=== PATIENT | female | born 1970 | race Two or more races ===

== ENCOUNTER 2017-11-06 15:47 | Inpatient (IN) | payer MEDICAID, OTHER ==
--- NOTE | 2017-11-06 16:27 | EDPHY ---
H & P Stated Complaint: R abd pain since last pm;denies n/v/d or constipation Time Seen by Provider: 11/06/17 16:15 HPI/ROS: CHIEF COMPLAINT: Abdominal pain HISTORY OF PRESENT ILLNESS: The patient presents the ED with complaints of right-sided abdominal pain. The patient's symptoms have been present for the past day. Her pain is moderate in nature. It does not radiate. She denies associated fever, vomiting, diarrhea or dysuria. The patient has a past medical history significant for rectal cancer which is in remission. It was treated surgically in 2013 with postoperative chemo and radiation. The patient currently takes no prescription medications. The patient currently rates her pain as a 6/10. The patient does report a history of diverticulosis noted on her colonoscopies. She has no history of diverticulitis. REVIEW OF SYSTEMS: A comprehensive 10 point review of systems is otherwise negative aside from elements mentioned in the history of present illness. Source: Patient Exam Limitations: No limitations - Personal History LMP (Females 10-55): Post Menopausal Current Tetanus Diphtheria and Acellular Pertussis (TDAP): Yes Tetanus Vaccine Date: < 10 YEARS - Medical/Surgical History Other PMH: Colon CA w/dissection ~ 5 yrs ago - Social History Smoking Status: Former smoker - Physical Exam Exam: General Appearance: Alert, no distress Eyes: Pupils equal and round no pallor or injection ENT, Mouth: Mucous membranes moist Respiratory: There are no retractions, lungs are clear to auscultation Cardiovascular: Regular rate and rhythm Gastrointestinal: Tenderness to palpation right lower quadrant, rebound is present, no peritoneal signs Neurological: A&O, normal motor function, normal sensory exam, normal cranial nerves Skin: Warm and dry, no rashes Musculoskeletal: Neck is supple nontender Extremities: symmetrical, full range of motion Constitutional: Initial Vital Signs Temperature (C) 36.9 C 11/06/17 15:59 Heart Rate 72 11/06/17 15:59 Respiratory Rate 18 11/06/17 15:59 Blood Pressure 109/59 L 11/06/17 15:59 O2 Sat (%) 98 11/06/17 15:59 O2 Delivery Mode Room Air Allergies/Adverse Reactions: No Known Allergies Allergy (Verified 11/06/17 15:59) Home Medications: Medication Instructions Recorded NK [No Known Home Meds] 11/06/17 Medical Decision Making - Diagnostics Imaging Results: Imaging Impressions Abdomen CT 11/06/17 16:33 Impression: 1. Inflammation involving the cephalad aspect of the proximal one-third portion of the transverse colon, probably a result of acute diverticulitis with a tiny pericolonic developing abscess measuring 12 x 12 x 14 mm. Clinical correlation and follow-up to assure resolution are recommended. 2. Postsurgical change to the rectum. 3. Normal appearance of the appendix. Findings and recommendations were discussed with Rudy Kirkpatrick MD at 17:36 , on 11/06/2017. ED Course/Re-evaluation: The patient presents to the ED with a 1 day history of acute abdominal pain. The patient was noted to have moderate tenderness to palpation in the right mid quadrant. The patient had an IV established. She received a L of normal saline. She received 1 mg of IV Dilaudid. Given the patient's surgical history and tenderness she was taken for CT scan of the abdomen pelvis which demonstrates diverticulitis with a small pericolonic abscess approximately 1 cm in size. The patient has no evidence of septic physiology emergency department. She is afebrile and has no leukocytosis. The patient received IV Levaquin and Flagyl. She continues to have ongoing pain and tenderness and will require admission to the hospital for bowel rest, IV antibiotic therapy and serial examinations. Consultation is made with the hospitalist service. The patient will be admitted by Dr. Moreno. The patient was re-evaluated at 6:30 p.m.. She is comfortable with the plan for admission. Differential Diagnosis: Differential diagnosis considered includes appendicitis, diverticulitis, perforation, abscess - Data Points Laboratory Results: Laboratory Results 11/06/17 16:24 11/06/17 11/06/17 11/06/17 16:24 16:24 16:24 WBC 7.80 10^3/uL 10^3/uL (3.80-9.50) RBC 4.01 10^6/uL L 10^6/uL (4.18-5.33) Hgb 12.7 g/dL g/dL (12.6-16.3) POC Hgb Hct 36.2 % L % (38.0-47.0) POC Hct MCV 90.3 fL fL (81.5-99.8) MCH 31.7 pg pg (27.9-34.1) MCHC 35.1 g/dL g/dL (32.4-36.7) RDW 12.3 % % (11.5-15.2) Plt Count 266 10^3/uL 10^3/uL (150-400) MPV 8.7 fL fL (8.7-11.7) Neut % (Auto) 71.8 % % (39.3-74.2) Lymph % (Auto) 18.7 % % (15.0-45.0) [place] % (Auto) 7.8 % % (4.5-13.0) Eos % (Auto) 1.0 % % (0.6-7.6) Baso % (Auto) 0.4 % % (0.3-1.7) Nucleat RBC Rel Count 0.0 % % (0.0-0.2) Absolute Neuts (auto) 5.60 10^3/uL 10^3/uL (1.70-6.50) Absolute Lymphs (auto) 1.46 10^3/uL 10^3/uL (1.00-3.00) Absolute Monos (auto) 0.61 10^3/uL 10^3/uL (0.30-0.80) Absolute Eos (auto) 0.08 10^3/uL 10^3/uL (0.03-0.40) Absolute Basos (auto) 0.03 10^3/uL 10^3/uL (0.02-0.10) Absolute Nucleated RBC 0.00 10^3/uL 10^3/uL (0-0.01) Immature Gran % 0.3 % % (0.0-1.1) Immature Gran # 0.02 10^3/uL 10^3/uL (0.00-0.10) POC Sodium POC Potassium POC Chloride POC BUN POC Creatinine POC Glucose Total Bilirubin 0.7 mg/dL mg/dL (0.1-1.4) Conjugated Bilirubin 0.1 mg/dL mg/dL (0.0-0.5) Unconjugated Bilirubin 0.6 mg/dL mg/dL (0.0-1.1) AST 49 IU/L H IU/L (14-46) ALT 44 IU/L IU/L (9-52) Alkaline Phosphatase 85 IU/L IU/L (38-126) Total Protein 8.1 g/dL g/dL (6.3-8.2) Albumin 4.5 g/dL g/dL (3.5-5.0) Lipase 110 IU/L IU/L (23-300) Urine Color YELLOW Urine Appearance CLEAR Urine pH 6.0 (5.0-7.5) Ur Specific [place] 1.014 (1.002-1.030) Urine Protein NEGATIVE (NEGATIVE) Urine Ketones NEGATIVE (NEGATIVE) Urine Blood NEGATIVE (NEGATIVE) Urine Nitrate NEGATIVE (NEGATIVE) Urine Bilirubin NEGATIVE (NEGATIVE) Urine Urobilinogen NEGATIVE EU EU (0.2-1.0) Ur Leukocyte Esterase TRACE H (NEGATIVE) Urine RBC 1-3 /hpf /hpf (0-3) Urine WBC 1-3 /hpf /hpf (0-3) Ur Epithelial Cells NONE SEEN /lpf /lpf (NONE-1+) Urine Glucose NEGATIVE (NEGATIVE) 11/06/17 16:19 WBC RBC Hgb POC Hgb 12.9 gm/dL gm/dL (12.6-16.3) Hct POC Hct 38 % % (38-47) MCV MCH MCHC RDW Plt Count MPV Neut % (Auto) Lymph % (Auto) Al[place] % (Auto) Eos % (Auto) Baso % (Auto) Nucleat RBC Rel Count Absolute Neuts (auto) Absolute Lymphs (auto) Absolute Monos (auto) Absolute Eos (auto) Absolute Basos (auto) Absolute Nucleated RBC Immature Gran % Immature Gran # POC Sodium 144 mEq/L mEq/L (134-144) POC Potassium 3.6 mEq/L mEq/L (3.3-5.0) POC Chloride 104 mEq/L mEq/L (97-110) POC BUN 12 mg/dL mg/dL (7-23) POC Creatinine 0.7 mg/dL mg/dL (0.6-1.0) POC Glucose 122 mg/dL H mg/dL (70-100) Total Bilirubin Conjugated Bilirubin Unconjugated Bilirubin AST ALT Alkaline Phosphatase Total Protein Albumin Lipase Urine Color Urine Appearance Urine pH Ur Specific [place] Urine Protein Urine Ketones Urine Blood Urine Nitrate Urine Bilirubin Urine Urobilinogen Ur Leukocyte Esterase Urine RBC Urine WBC Ur Epithelial Cells Urine Glucose Point of Care Test Results: 11/06/17 16:19 POC Sodium 144 POC Potassium 3.6 POC Chloride 104 POC BUN 12 POC Creatinine 0.7 POC Glucose 122 H Departure - Departure Disposition: [facility] In[facility] Acute Clinical Impression: Diverticulitis of colon with perforation Condition: Good Referrals: Maricruz Treviño PA [Primary Care Provider] - As per Instructions
[2017-11-06] MEDS ORDERED: IOPAMIDOL (ISOVUE-300) 100 ML BTL ONE (16:35)
[2017-11-06 16:38] LABS: % IMMATURE GRANULYOCYTES 0.3 % (0.0-1.1); ABSOLUTE IMMATURE GRANULOCYTES 0.02 10^3/uL (0.00-0.10); ADD DIFF? NO; ADD MORPH? NO; ADD SCAN? NO; ATYPICAL LYMPHOCYTE FLAG 10 (0-99); FRAGMENT RBC FLAG 0 (0-99); HEMATOCRIT 36.2 % (38.0-47.0); HEMOGLOBIN 12.7 g/dL (12.6-16.3); LEFT SHIFT FLG 0 (0-99); LIPEMIA HEMOLYSIS FLAG 90 (0-99); MEAN CELL HEMOGLOBIN 31.7 pg (27.9-34.1); MEAN CELL HEMOGLOBIN CONCENTR. 35.1 g/dL (32.4-36.7); MEAN CELL VOLUME 90.3 fL (81.5-99.8); MEAN PLATELET VOLUME 8.7 fL (8.7-11.7); PLATELET CLUMPS FLAG 0 (0-99); PLATELET COUNT 266 10^3/uL (150-400); RED BLOOD CELL COUNT 4.01 10^6/uL (4.18-5.33); RED CELL DISTRIBUTION WIDTH 12.3 % (11.5-15.2)
[2017-11-06 16:40] LABS: COLOR YELLOW; LEUKOCYTE ESTERASE,URINE TRACE (NEGATIVE); NITRITE,URINE NEGATIVE (NEGATIVE)
[2017-11-06 16:55] LABS: ALBUMIN 4.5 g/dL (3.5-5.0); BILIRUBIN,TOTAL 0.7 mg/dL (0.1-1.4); BILIRUBIN-CONJUGATED 0.1 mg/dL (0.0-0.5); BILIRUBIN-UNCONJUGATED 0.6 mg/dL (0.0-1.1); TOTAL PROTEIN 8.1 g/dL (6.3-8.2)
[2017-11-06] MEDS ORDERED: NS 1,000 ML IV ONE (18:13)
[2017-11-06] MEDS ORDERED: HYDROmorphONE/DILAUDID 1 MG/ML INJ IVP ONE (18:13)
[2017-11-06] MEDS: D5W 1/2 NS W/ 20 KCl/L 1,000 ML IV SCH (20:10)
[2017-11-06] MEDS ORDERED: ONDANSETRON 4 MG/2 ML VIAL IVP PRN (21:54)
[2017-11-06] MEDS ORDERED: PROMETHAZINE HCL 25 MG/ML INJ IVP PRN (21:55)
--- NOTE | 2017-11-07 00:01 | PDGENHP ---
History and Physical - Chief Complaint Abdominal pain - History of Present Illness 46 yo F w/ hx of CRC s/p surgery, chemo, and radiation in 2012 presents with abdominal pain. Patient noticed severe abdominal pain yesterday and has persisted into today. She denies fevers, chills, diarrhea, and blood in stool. She has known diverticulosis but has never had any complications related to this. In the ED CT scan was consistent with diverticulitis of the transverse colon w/ microabscess so she was admitted for further management. History Information - Allergies/Home Medication List Allergies/Adverse Reactions: No Known Allergies Allergy (Verified 11/06/17 15:59) Home Medications: Acetaminophen [Tylenol 325mg (*)] 325 mg PO Q6 PRN 11/06/17 [Last Taken 15:00] Herbals/Supplements -Info Only 1 ea PO DAILY 11/06/17 [Last Taken 11/04/17] I have personally reviewed and updated: family history, medical history - Past Medical History cancer (CRC treated w/ surgery, chemo, and XRT in 2011) - Surgical History Reports: colectomy (4" resection with anastamosis during original procedure, no ostomy) - Family History Positive for: cancer - Social History Smoking Status: Former smoker Review of Systems Review of Systems: ROS: 10pt was reviewed & negative except for what was stated in HPI & below Physical Exam Physical Exam: Temp Pulse Resp BP Pulse Ox 37.3 C 68 16 99/62 L 95 11/06/17 21:00 11/06/17 23:38 11/06/17 22:30 11/06/17 21:00 11/06/17 23:38 Constitutional: no apparent distress, not in pain Eyes: PERRL, EOMI Ears, Nose, Mouth, Throat: moist mucous membranes, no oral mucosal ulcers Cardiovascular: regular rate and rhythym, no murmur, rub, or gallop Respiratory: no respiratory distress, clear to auscultation Gastrointestinal: normoactive bowel sounds, tenderness (Exquisite, mid-abdomen) , No guarding, No rebound, No distension Skin: warm, normal color Musculoskeletal: full muscle strength, no muscle tenderness Neurologic: AAOx3, CN II-XII Intact Lab Data & Imaging Review 11/06/17 16:24 WBC 7.80 10^3/uL (3.80-9.50) 12/11/17 16:24 RBC 4.01 10^6/uL (4.18-5.33) L 11/06/17 16:24 Hgb 12.7 g/dL (12.6-16.3) 11/06/17 16:24 POC Hgb 12.9 gm/dL (12.6-16.3) 11/06/17 16:19 Hct 36.2 % (38.0-47.0) L 11/06/17 16:24 POC Hct 38 % (38-47) 11/06/17 16:19 MCV 90.3 fL (81.5-99.8) 11/06/17 16:24 MCH 31.7 pg (27.9-34.1) 11/06/17 16:24 MCHC 35.1 g/dL (32.4-36.7) 11/06/17 16:24 RDW 12.3 % (11.5-15.2) 11/06/17 16:24 Plt Count 266 10^3/uL (150-400) 11/06/17 16:24 MPV 8.7 fL (8.7-11.7) 11/06/17 16:24 Neut % (Auto) 71.8 % (39.3-74.2) 11/06/17 16:24 Lymph % (Auto) 18.7 % (15.0-45.0) 11/06/17 16:24 [place] % (Auto) 7.8 % (4.5-13.0) 11/06/17 16:24 Eos % (Auto) 1.0 % (0.6-7.6) 11/06/17 16:24 Baso % (Auto) 0.4 % (0.3-1.7) 11/06/17 16:24 Nucleat RBC Rel Count 0.0 % (0.0-0.2) 11/06/17 16:24 Absolute Neuts (auto) 5.60 10^3/uL (1.70-6.50) 11/06/17 16:24 Absolute Lymphs (auto) 1.46 10^3/uL (1.00-3.00) 11/06/17 16:24 Absolute Monos (auto) 0.61 10^3/uL (0.30-0.80) 11/06/17 16:24 Absolute Eos (auto) 0.08 10^3/uL (0.03-0.40) 11/06/17 16:24 Absolute Basos (auto) 0.03 10^3/uL (0.02-0.10) 11/06/17 16:24 Absolute Nucleated RBC 0.00 10^3/uL (0-0.01) 11/06/17 16:24 Immature Gran % 0.3 % (0.0-1.1) 11/06/17 16:24 Immature Gran # 0.02 10^3/uL (0.00-0.10) 11/06/17 16:24 POC Sodium 144 mEq/L (134-144) 11/06/17 16:19 POC Potassium 3.6 mEq/L (3.3-5.0) 11/06/17 16:19 POC Chloride 104 mEq/L (97-110) 11/06/17 16:19 POC BUN 12 mg/dL (7-23) 11/06/17 16:19 POC Creatinine 0.7 mg/dL (0.6-1.0) 11/06/17 16:19 POC Glucose 122 mg/dL (70-100) H 11/06/17 16:19 Total Bilirubin 0.7 mg/dL (0.1-1.4) 11/06/17 16:24 Conjugated Bilirubin 0.1 mg/dL (0.0-0.5) 11/06/17 16:24 Unconjugated Bilirubin 0.6 mg/dL (0.0-1.1) 11/06/17 16:24 AST 49 IU/L (14-46) H 11/06/17 16:24 ALT 44 IU/L (9-52) 11/06/17 16:24 Alkaline Phosphatase 85 IU/L (38-126) 11/06/17 16:24 Total Protein 8.1 g/dL (6.3-8.2) 11/06/17 16:24 Albumin 4.5 g/dL (3.5-5.0) 11/06/17 16:24 Lipase 110 IU/L (23-300) 11/06/17 16:24 Urine Color YELLOW 11/06/17 16:24 Urine Appearance CLEAR 11/06/17 16:24 Urine pH 6.0 (5.0-7.5) 11/06/17 16:24 Ur Specific [place] 1.014 (1.002-1.030) 11/06/17 16:24 Urine Protein NEGATIVE (NEGATIVE) 11/06/17 16:24 Urine Ketones NEGATIVE (NEGATIVE) 11/06/17 16:24 Urine Blood NEGATIVE (NEGATIVE) 11/06/17 16:24 Urine Nitrate NEGATIVE (NEGATIVE) 11/06/17 16:24 Urine Bilirubin NEGATIVE (NEGATIVE) 11/06/17 16:24 Urine Urobilinogen NEGATIVE EU (0.2-1.0) 11/06/17 16:24 Ur Leukocyte Esterase TRACE (NEGATIVE) H 11/06/17 16:24 Urine RBC 1-3 /hpf (0-3) 11/06/17 16:24 Urine WBC 1-3 /hpf (0-3) 11/06/17 16:24 Ur Epithelial Cells NONE SEEN /lpf (NONE-1+) 11/06/17 16:24 Urine Glucose NEGATIVE (NEGATIVE) 11/06/17 16:24 Imaging Review: Diverticulitis of the transverse colon with "tiny" developing emil-colonic abscess. Assessment & Plan Assessment: 46 yo F w/ hx of CRC s/p surgery, chemo, and radiation in 2011 presents with abdominal pain and found to have diverticulitis with small emil-colonic abscess. Plan: 1. Diverticulitis - Associated with tiny emil-colonic abscess, which likely does not require surgical intervention. WBC WNL and patient afebrile so few signs of systemic infection at this time. This is her first episode of diverticulitis but has known diverticulosis. - CTX/Flagyl for empiric intra-abdominal coverage - mIVF, pain control, clear liquid diet 2. Hx of CRC - S/p surgery, chemo, and radiation in 2012. Has had no issues related to this since. Diet - Clears Ppx - Low risk, ambulate TID Code - Full Dispo - Admit to observation status
[2017-11-07] MEDS ORDERED: ACETAMINOPHEN 325 MG TAB PO PRN (00:04)
[2017-11-07] MEDS ORDERED: ONDANSETRON DISINTEGRATING 4 MG TAB PO PRN (00:04)
[2017-11-07] MEDS ORDERED: ONDANSETRON 4 MG/2 ML VIAL IVP PRN (00:04)
[2017-11-07] MEDS: D5W 1/2 NS W/ 20 KCl/L 1,000 ML IV SCH (09:23)
--- NOTE | 2017-11-07 12:35 | HOSPPROG ---
Hospitalist Progress Note Assessment/Plan: 46 yo F w/ hx of CRC s/p surgery, chemo, and radiation in 2011 presents with abdominal pain. Patient noticed severe abdominal pain yesterday and had persisted. Today is my first encounter with the patient, chart reviewed. * Diverticulitis w micro abscess -Ceftriaxone and flagyl -clear liquid diet -will ask surgery to evaluate * Hx of Colorectal cancer - S/p surgery, chemo, and radiation in 2012. *left sided gum pain/inflammation -recommendation is to f/u with an oral surgeon *Plan: patient is quite tender in LLQ with touch. She has a small pericolonic abscess. She will require another midnight stay for iv abx. Also, surgery to see. Subjective: Kayleen is feeling much better today, but cont to be tender in llq area. Objective: Vital Signs Temp Pulse Resp BP Pulse Ox 37.0 C 69 16 89/60 L 96 11/07/17 11:19 11/07/17 11:19 11/07/17 11:19 11/07/17 11:19 11/07/17 11:19 11/06/17 11/07/17 11/08/17 05:59 05:59 05:59 Intake Total 810 Output Total 1164 Balance -354 - Physical Exam Constitutional: other (thin) Eyes: PERRL Ears, Nose, Mouth, Throat: hearing normal, other (left upper gum area in mouth reddened) Cardiovascular: regular rate and rhythym Respiratory: no respiratory distress Gastrointestinal: normoactive bowel sounds, tenderness (llq) Skin: warm Musculoskeletal: full muscle strength Neurologic: AAOx3 Psychiatric: interacting appropriately ICD10 Worksheet Patient Problems: Problems Problem Status Onset Diverticulitis of colon with perforation Acute
--- NOTE | 2017-11-07 16:10 | PDMN ---
Medical Necessity Medical necessity: Pt meets INPT criteria per [employer]/MD as of 11/07/17 and MCG M- 150 Diverticulitis, Acute (diverticulitis w/ micro abscess requiring IVABx, surgery consult pending, persistent abd pain; hx colorectal cancer s/p surgery/ chemo/radiation per progress note).
--- NOTE | 2017-11-07 20:20 | SOAPPROG ---
[facility] Progress Note Assessment/Plan: Assessment: 46-YEAR-OLD FEMALE WITH RIGHT UPPER QUADRANT PAIN/CT SCAN SHOWS LOCALIZED DIVERTICULITIS WITH A SMALL EARLY ABSCESS PATIENT DEVELOPED PAIN 2 DAYS AGO AND IS MUCH IMPROVED NOW ON ANTIBIOTICS AND IS TOLERATING CLEAR LIQUIDS AFEBRILE ABDOMEN SOFT NOT PARTICULARLY TENDER WITH POSITIVE BOWEL SOUNDS/THERE ARE NO HERNIAS CHEST IS CLEAR COR REGULAR RHYTHM PATIENT IS STATUS POST A LOW ANTERIOR COLECTOMY FOR CANCER 6 YEARS AGO AND HAS HAD PELVIC RADIATION AND CHEMOTHERAPY IMPRESSION IS LOCALIZED DIVERTICULITIS WITH EARLY ABSCESS Plan: CLOSE OBSERVATION ON ANTIBIOTICS AND CLEAR LIQUID DIET/SURGERY IF NOT RESOLVING/IF IMPROVING FOLLOW UP AN OUTPATIENT ON ORAL ANTIBIOTICS 11/07/17 20:17 Objective: Vital Signs Temp Pulse Resp BP Pulse Ox 37.0 C 69 16 89/60 L 96 11/07/17 11:19 11/07/17 11:19 11/07/17 11:19 11/07/17 11:19 11/07/17 11:19 ICD10 Worksheet Patient Problems: Problems Problem Status Onset Diverticulitis of colon with perforation Acute
[2017-11-08 04:07] VITALS: TEMP 98
[2017-11-08 08:25] VITALS: BP 110/62; PULSE 55; RESP 17; O2SAT 97
--- NOTE | 2017-11-08 08:53 | HOSPPROG ---
Hospitalist Progress Note Assessment/Plan: 46 yo F w/ hx of CRC s/p surgery, chemo, and radiation in 2011 presents with abdominal pain. Patient noticed severe abdominal pain yesterday and had persisted. * Diverticulitis w micro abscess -Ceftriaxone and flagyl -clear liquid diet -f/u with Dr Duong * Hx of Colorectal cancer - S/p surgery, chemo, and radiation in 2011. *left sided gum pain/inflammation -recommendation is to f/u with an oral surgeon *Plan: much improved, cont w a clear liquid diet x 2 days, then with low residue diet Subjective: Kayleen is feeling much better today, no complaints. Objective: Vital Signs Temp Pulse Resp BP Pulse Ox 36.7 C 55 L 17 110/62 97 11/08/17 08:00 11/08/17 08:00 11/08/17 08:00 11/08/17 08:00 11/08/17 08:00 11/07/17 11/08/17 11/09/17 05:59 05:59 05:59 Intake Total 1270 Balance 1270 - Physical Exam Constitutional: no apparent distress, appears nourished, other (thin) Eyes: PERRL Ears, Nose, Mouth, Throat: hearing normal Respiratory: no respiratory distress Skin: warm Musculoskeletal: full muscle strength Neurologic: AAOx3 Psychiatric: interacting appropriately ICD10 Worksheet Patient Problems: Problems Problem Status Onset Diverticulitis of colon with perforation Acute
--- NOTE | 2017-11-08 10:45 | SOAPPROG ---
SOAP Progress Note Assessment/Plan: Assessment/Plan: 46 Y F hx colorectal CA 2011, admitted with abdominal pain, small abscess, possibly 2/2 diverticulitis. Doing well. Pain much improved. Afebrile. WBCs ok. CEA WNL. Ok to d/c to home today on PO abx and clear liquid with f/u on Monday with Dr. Duong. May need f/u CT and/or colonoscopy eventually. alert, nad no wob abd soft, less tender 11/08/17 10:44 Objective: Vital Signs Temp Pulse Resp BP Pulse Ox 36.7 C 55 L 17 110/62 97 11/08/17 08:00 11/08/17 08:00 11/08/17 08:00 11/08/17 08:00 11/08/17 08:00 11/07/17 11/08/17 11/09/17 05:59 05:59 05:59 Intake Total 1270 Balance 1270 ICD10 Worksheet Patient Problems: Problems Problem Status Onset Diverticulitis of colon with perforation Acute
--- NOTE | 2017-11-08 12:36 | GCON ---
[f rep st] CONSULTATION GENERAL SURGERY CONSULTATION REASON FOR CONSULT: Abdominal abscess, possible diverticulitis, history of colectomy for cancer. HISTORY OF PRESENT ILLNESS: The patient is a 46-year-old female with a history of colorectal cancer, initially treated with oral chemotherapy and radiation, then surgery, followed by IV chemotherapy in 2011, who presented to the emergency department with constant severe worsening focal upper abdominal pain. She says she is eating fine and denies nausea, vomiting, diarrhea, constipation, bloody stool s, weight loss, or painful urination. On presentation to the emergency department, a CT scan of her abdomen and pelvis was performed showin g inflammation of her transverse colon with a pericolonic abscess measuring 12 x 12 x 14 mm. This wa s thought to possibly be due to acute diverticulitis. She is being treated with IV Flagyl and Levaqu in with much improvement of her pain. She has a normal white blood cell count. She is tolerating a clear liquid diet. Of note, she is also followed by Dr. Sanz at the [facility] and [facility]. Her colorectal surgeon near [place] has since retired. PAST MEDICAL HISTORY: Includes colorectal cancer as described above. The patient is unsure of the e xact location of the cancer. Since she had radiation therapy, it is most likely to be rectal in [facility], but we will need to get records. PAST SURGICAL HISTORY: Partial colectomy. MEDICATIONS: No regular home medicines. ALLERGIES: No known drug allergies. SOCIAL HISTORY: The patient is self-employed as a hairstylist. She lives with her and does have children. She does not smoke. However, per chart review, she is listed as a former smoker, carol unt unspecified. REVIEW OF SYSTEMS: A 10-point review of systems negative aside from that in the HPI. PHYSICAL EXAMINATION: GENERAL: Reveals a well-developed, well-nourished, nontoxic-appearing 46-year -old female in no acute distress. HEENT: Normocephalic, atraumatic. Sclerae anicteric. Mucous mem branes moist. CHEST: Clear to auscultation bilaterally. CARDIAC: Regular rate and rhythm. ABDOME N: Soft without rebound or guarding. Fairly focal tenderness in the epigastric area just right of m idline. Well-healed scar. No hernias. No rebound or guarding. EXTREMITIES: Warm and dry without edema. IMPRESSION: This is a 46-year-old female with a small abdominal abscess, possibly secondary to diver ticulitis. However, relation to her prior surgery or malignancy cannot be completely excluded. PLAN: I discussed this with Dr. Duong and Delia Schneider in Internal Medicine. The patient is agre eable to staying overnight for further IV antibiotics and observation. I think this is a good idea s dain she is still focally tender, albeit improved. At some point, she will need followup imaging and colonoscopy. If she does well, she may be able to be discharged tomorrow on oral antibiotics and a clear versus low residue diet with close outpatient followup. We will try to obtain records from Dr. Sanz regarding location of her prior colon cancer. We will also order a CEA. She tells me this was elevated with her original cancer and has been followed since then. /[id number]/MODL
--- NOTE | 2017-11-08 17:23 | GDS ---
[f rep st] DISCHARGE SUMMARY DISCHARGE DIAGNOSES: 1. Acute diverticulitis with a small microabscess. 2. History of colorectal cancer. 3. Left-sided gum pain with associated inflammation. CONSULTATION: Regina Shay, Physician Cassandra Consultant with Dr. Ryne Duong. BRIEF HISTORY: The patient is a 46-year-old female with a history of colorectal cancer, who presented to the emergency room with ongoing abdominal pain. The pain kept persisting, and she was admitted for further evaluation. A CT of the abdomen was performed, which showed inflammation involving the cephalad aspect of the proximal one-third portion of the transverse colon, probably a result of acute diverticulitis, with a tiny pericolonic developing abscess measuring 12 x 12 x 14 mm. She was seen and evaluated by Dr. Ryne Duong, who will follow up with the patient closely in the outpatient setting. HOSPITAL COURSE PER PROBLEM: 1. Diverticulitis with microabscess. She was treated with ceftriaxone and Flagyl. She is on a clear liquid diet. She is feeling markedly better. She will be discharged home with continued Flagyl and Levaquin x8 more days. She will follow up with Dr. Duong this coming Monday to be monitored closely. 2. History of colorectal cancer. A CEA was checked, which was within normal limits. 3. Left-sided upper gum pain. Recommended she get further followup with an oral surgeon to evaluate this. DISCHARGE CONDITION: Stable. PHYSICAL EXAMINATION: VITAL SIGNS: Blood pressure is 110/62, heart rate is 55 , respiratory rate 17, O2 saturation on room air 97%, temperature is 36.7 Celsius. MEDICATIONS AT DISCHARGE: Please see the EMR. DISCHARGE INSTRUCTIONS: 1. To call for fevers greater than 101, if she has nausea, vomiting, or worsening abdominal pain. 2. Call Dr. Duong to set up an appointment for Monday. 3. Stay on clear liquid diet for 2 more days, then a low-residue diet. 4. Start the Levaquin tomorrow and the Flagyl today. 5. Be aware not to drink alcohol while on the Flagyl, and that Levaquin can affect tendons. Greater than 30 minutes discharging and coordinating the patient's care. /[id number]/MODL MTDD
--- NOTE | 2017-11-09 03:04 | GDS ---
[f rep st] DISCHARGE SUMMARY DISCHARGE DIAGNOSES: 1. Diverticulitis with microabscess. 2. History of colorectal cancer. 3. Left-sided gum pain, inflammation. CONSULTATION: Regina Shay, physician cafe assistant with Dr. Ryne Duong. HISTORY OF PRESENT ILLNESS: Briefly, the patient is a 46-year-old female with a history of colorecta l cancer, who presented with abdominal pain. It persisted and she came to the emergency room for fur ther evaluation. She had a CT of the abdomen performed. This noted inflammation involving the cepha lad aspect of the proximal 1/3 of the transverse colon, probably a result of acute diverticulitis wit h a tiny pericolonic developing abscess measuring 12 x 12 x 14 mm. She was treated with IV antibioti cs. She will further follow up with the surgical team in the outpatient setting for close monitoring . HOSPITAL COURSE: 1. Diverticulitis with microabscess. She was treated with ceftriaxone and Flagyl. She will be disc harged home on Levaquin and Flagyl. 2. History of colorectal cancer, stable. 3. Left-sided gum pain with inflammation. Recommendation is to follow up with an oral surgeon. DISCHARGE CONDITION: Stable. Blood pressure is 110/62, O2 sats on room air 97%, respiratory rate is 17, pulse is 55, temperature is 36.7 Celsius. MEDICATIONS AT DISCHARGE: Please see the EMR. DISCHARGE INSTRUCTIONS: 1. Follow up with Dr. Duong this Monday. 2. To stay on a clear liquid diet for 2 more days, then a low-residue diet. 3. Still with fever, chills, worsening abdominal pain. Return to the ER. Greater than 30 minutes discharging and coordinating the patient's care. /[id number]/MODL
== END 2017-11-08 10:00 | disposition home or self-care (01) | DRG 392 ==
LOC: FOB 19:56 → OBSVTOIN 11-07 14:50
PROVIDERS: ADMIT Internal Medicine; ATTEND Student in an Organized Health Care Education/Training Program
DX: K57.20 Diverticulitis of large intestine with perforation and abscess without bleeding (principal); K05.10 Chronic gingivitis, plaque induced; Z85.048 Personal history of other malignant neoplasm of rectum, rectosigmoid junction, and anus; Z92.3 Personal history of irradiation; Z87.891 Personal history of nicotine dependence
CPT/HCPCS: 82947-QW; 96374; G0378; J0696; J1170; J1956; Q9967